=== PATIENT | female | born 1980 | race Two or more races ===

== ENCOUNTER → 2017-05-26 07:25 | Outpatient (CLI) | payer BC, SELFPAY ==
[2017-05-26 08:10] LABS: Basophils % 0.3 % (0.1-2.0); Eosinophils # 0.1 K/mm3 (0.0-0.4); Eosinophils % 1.2 % (0.1-12.0); Hematocrit 42.6 % (37.0-47.0); Hemoglobin 13.6 g/dL (12.2-16.2); Lymphocytes # 3.2 K/mm3 (0.7-4.5); Lymphocytes % 33.7 K/mm3 (10-50); Mean Corpuscular Hemoglobin 28.2 pg (27.0-31.2); Mean Platelet Volume 8.9 fl (7.4-10.4); Monocytes # 0.4 K/mm3 (0.1-1.0); Monocytes % 4.6 % (1.7-9.3); Neutrophils # 5.7 K/mm3 (1.8-7.8); Neutrophils % 60.1 % (37.0-80.0); Platelet Count 217 K/mm3 (142-424); Red Blood Count 4.85 M/mm3 (4.20-5.40); Red Cell Distribution Width 13.1 % (11.5-17.5); White Blood Count 9.4 K/mm3 (4.8-10.8)
[2017-05-26 08:17] LABS: Alanine Aminotransferase 22 U/L (12-78); Albumin Level 3.5 gm/dL (3.4-5.0); Albumin/Globulin Ratio 0.9 (1.1-1.8); Alkaline Phosphatase 56 U/L (46-116); Anion Gap 9.3 mEq/L (5-15); Aspartate Amino Transferase 17 U/L (15-37); Bilirubin,Total 0.7 mg/dL (0.2-1.0); Blood Urea Nitrogen 12 mg/dL (7-18); Calcium 9.2 mg/dL (8.5-10.1); Carbon Dioxide 30 mmol/L (21.0-32.0); Chloride 103 mmol/L (98-107); Chol/HDL Ratio 2.5 (1-3.5); Cholesterol 160 mg/dL (140-200); Creatinine,Serum 0.69 mg/dL (0.55-1.02); Estimated Glomerular Filt Rate 95 ml/min (>60); Free T4 (Free Thyroxine) 1.03 ng/dl (0.76-1.46); GFR (African American) 115 ML/MIN (>60); Glucose 100 mg/dL (74-106); HDL Cholesterol 64 mg/dL (29-89); LDL Cholesterol 81 mg/dL (0-130); Potassium 4.3 mmoL/L (3.5-5.1); Sodium 138 mmol/L (136-145); Thyroid Stimulating Hormone 0.67 uIU/ml (0.358-3.740); Total Protein,Serum 7.5 gm/dL (6.4-8.2); Triglycerides 76 mg/dL (30-200); VLDL Cholesterol 15 mg/dL (0-40)
== END ==
PROVIDERS: PCP Nurse Practitioner Family; Visit Provider Nurse Practitioner Family
DX: I49.3 Ventricular premature depolarization (principal); E01.0 Iodine-deficiency related diffuse (endemic) goiter
CPT/HCPCS: 36415; 80053; 80061; 84439; 84443; 85025; 93225; 93226

== ENCOUNTER → 2017-05-31 13:43 | Outpatient (CLI) | payer BC, SELFPAY ==
--- NOTE | 2017-05-31 13:55 | CA_ITS ---
PROCEDURE: 2-D M-mode and color Doppler study INDICATIONS FOR THE TEST: Chest pain COPD Heart Murmur Tobacco Smoking Palpitations+ Fatigue Syncope Edema Hypertension Diabetes Mellitus Rheumatic Fever SOB+RAMIREZ Obesity Hyperlipidemia Family History HD Additional History PVC'S PATIENT INFORMATION HEIGHT: 60 WEIGHT:168 GENDER: Female B/P: 2-D/M-MODE INTERPRETATION: 2-D MEASUREMENTS OBSERVED VALUES IN CMS Right Ventricular Dimension (RVDd) 2.1 Interventricular Septum (Thickness)(IVsd) 0.9 Left Ventricular Internal Dimensions(LVIDd) 4.6 Left Ventricular Posterior Wall (Thickness)(LVPWd) 0.8 Aortic Root 2.6 Aortic Cusp Separation 1.9 Left Atrial Dimensions (LAD) 3.6 2D 1. Left atrium is normal size, left ventricle is normal size, there is no concentric left ventricular hypertrophy, visually estimated ejection fraction 55% with no obvious regional wall motion abnormality. 2. The right atrium and right ventricle are normal size and contractility. 3. The aortic, mitral and tricuspid valve are structurally normal. 4. The pulmonic valve is poorly visualized. 5. No significant pericardial effusion noted. DOPPLER INTERROGATION: Doppler interrogation of the aortic, mitral and tricuspid valvular presence of mild mitral and tricuspid regurgitation, tricuspid and jet velocity insufficient for calculation of the right ventricular systolic pressure, diastolic parameters are within normal range. CONCLUSION: 1. Normal left ventricular size, there is no concentric left ventricular hypertrophy, visually estimated ejection fraction 55% with no obvious regional wall motion abnormality, diastolic parameters are within normal range. 2. Mild mitral and tricuspid regurgitation. 3. No significant pericardial effusion noted.
--- NOTE | 2017-05-31 14:34 | US_ITS ---
US thyroid HISTORY: Lethargy, dizziness, tachycardia ITS.REASON: THYROMEGLY ORDERING PHYSICIAN: Goldie Marquez PATIENT AGE: 37 years COMPARISON: FINDINGS: The right lobe is 4.8 x 1.4 x 2 cm. There is a 1 x 0.5 cm area of ill-defined slightly heterogeneous echogenicity in the mid aspect of the right lobe and may be due to a small developing nodule versus heterogeneous tissue echogenicity. The left lobe is 4.9 x 1.2 x 1.8 cm. A 4 mm mixed echogenic nodule in the mid aspect of the left lobe. The isthmus is thickened at 5 mm. IMPRESSION: 1. Thyromegaly. 2. Possible right thyroid nodule versus heterogeneous echogenicity. Consider 6 month follow-up to confirm stability. 3. 5 mm left thyroid nodule
== END ==
PROVIDERS: PCP Internal Medicine Adolescent Medicine; Visit Provider Nurse Practitioner Family
DX: I49.3 Ventricular premature depolarization (principal); E01.0 Iodine-deficiency related diffuse (endemic) goiter
CPT/HCPCS: 76536; 93306

== ENCOUNTER → 2021-05-17 08:35 | Outpatient (CLI) | payer BC, SELFPAY ==
[2021-05-17 09:40] LABS: Basophils # 0.1 K/mm3 (0-0.2); Basophils % 0.8 % (0.1-2.0); Eosinophils % 0.7 % (0.1-12.0); Hematocrit 40.2 % (37.0-47.0); Hemoglobin 13.3 g/dL (12.2-16.2); Lymphocytes # 2.4 K/mm3 (0.7-4.5); Lymphocytes % 39.6 % (10-50); Mean Corpuscular Hemoglobin 29.6 pg (27.0-31.2); Mean Corpuscular Volume 89.6 fl (81-99); Mean Platelet Volume 8.5 fl (7.4-10.4); Monocytes # 0.2 K/mm3 (0.1-1.0); Monocytes % 3.9 % (1.7-9.3); Neutrophils # 3.3 K/mm3 (1.8-7.8); Platelet Count 201 K/mm3 (142-424); Red Blood Count 4.48 M/mm3 (4.20-5.40); Red Cell Distribution Width 13.8 % (11.5-17.5)
[2021-05-17 09:58] LABS: Hemoglobin A1C 5.2 % (4.0-6.0)
[2021-05-17 13:18] LABS: Chloride 106 mmol/L (98-107); Potassium 4.3 mmoL/L (3.5-5.1); Sodium 138 mmol/L (136-145)
[2021-05-17 13:21] LABS: Alanine Aminotransferase 16 U/L (12-78); Albumin Level 4.1 g/dl (3.5-5.0); Albumin/Globulin Ratio 1.6 (1.1-1.8); Alkaline Phosphatase 36 U/L (38-126); Anion Gap 10.3 mEq/L (5-15); Aspartate Amino Transferase 24 U/L (14-36); Bilirubin,Total 0.9 mg/dl (0.2-1.3); Blood Urea Nitrogen 16 mg/dl (7-17); Calcium 8.7 mg/dl (8.4-10.2); Carbon Dioxide 26 mmol/L (22.0-30.0); Estimated Glomerular Filt Rate 78 ml/min (>60); GFR (African American) 95 ML/MIN (>60); Globulin 2.6 g/dL (1.3-3.2); Glucose 81 mg/dl (74-100); Total Protein,Serum 6.7 g/dl (6.3-8.2)
[2021-05-17 13:48] LABS: Triiodothryronine (T3) Uptake 35 % (23.5-40.5)
[2021-05-17 13:49] LABS: Free Thyroxine Index 3.2 ug/dL (5.93-13.13); T4 (Thyroxine) 9.1 ug/dl (5.53-11.0)
[2021-05-17 14:02] LABS: Thyroid Stimulating Hormone 0.82 uIU/mL (0.465-4.68)
== END ==
PROVIDERS: PCP Internal Medicine Adolescent Medicine; Visit Provider Internal Medicine Adolescent Medicine
DX: R51.9 Headache, unspecified (principal); E01.0 Iodine-deficiency related diffuse (endemic) goiter
CPT/HCPCS: 36415; 80053; 83036; 84436; 84443; 84479; 85025

== ENCOUNTER → 2021-08-21 11:16 | Outpatient (CLI) | payer BC, SELFPAY ==
--- NOTE | 2021-08-21 11:21 | XR_ITS ---
PROCEDURE INFORMATION: Exam: XR Entire Spine, 6 or More Views, Scoliosis Exam date and time: 08/21/2021 11:27 AM Age: 41 years old Clinical indication: Low back pain; Additional info: Pain complete spine-- TECHNIQUE: Imaging protocol: XR of the entire spine. 6 or more views. Evaluation for scoliosis. COMPARISON: No relevant prior studies available. FINDINGS: Vertebrae: An 8 degree dextroscoliotic curvature is identified with apex at L3. Vertebral bodies are normal in vertical dimension and alignment is maintained. Straightening of cervical lordosis which can be additional evidence of scoliosis positional or due to muscle spasm. Lungs: Included lungs appear clear. Gastrointestinal tract: Excessive stool within the colon. Soft tissues: No precervical soft tissue swelling. IMPRESSION: 1. An 8 degree dextroscoliotic curvature is identified with apex at L3. 2. Straightening of cervical lordosis which can be additional evidence of scoliosis, positional or due to muscle spasm. 3. Excessive stool within the colon.
== END ==
PROVIDERS: PCP Internal Medicine Adolescent Medicine; Visit Provider Internal Medicine Adolescent Medicine
DX: M54.2 Cervicalgia (principal); M54.6 Pain in thoracic spine; M54.50 Low back pain, unspecified
CPT/HCPCS: 72084

== ENCOUNTER → 2022-10-04 09:11 | Outpatient (CLI) | payer BC, SELFPAY ==
[2022-10-04 09:38] LABS: Basophils % 0.4 % (0.1-2.0); Eosinophils # 0.1 K/mm3 (0.0-0.4); Eosinophils % 1.6 % (0.1-12.0); Hematocrit 41.4 % (37.0-47.0); Hemoglobin 13.5 g/dL (12.2-16.2); Lymphocytes # 3.3 K/mm3 (0.7-4.5); Mean Corpuscular HGB Conc 32.6 g/dL (31.8-35.4); Mean Corpuscular Hemoglobin 28.3 pg (27.0-31.2); Mean Corpuscular Volume 86.7 fl (81-99); Mean Platelet Volume 8.6 fl (7.4-10.4); Monocytes # 0.4 K/mm3 (0.1-1.0); Monocytes % 4.8 % (1.7-9.3); Neutrophils # 4.4 K/mm3 (1.8-7.8); Neutrophils % 53.1 % (37.0-80.0); Platelet Count 203 K/mm3 (142-424); Red Blood Count 4.78 M/mm3 (4.20-5.40); Red Cell Distribution Width 13.6 % (11.5-17.5); White Blood Count 8.3 K/mm3 (4.8-10.8)
[2022-10-04 11:19] LABS: Chloride 105 mmol/L (98-107); Potassium 3.9 mmoL/L (3.5-5.1); Sodium 137 mmol/L (136-145)
[2022-10-04 11:22] LABS: Alanine Aminotransferase 19 U/L (12-78); Albumin Level 3.7 g/dl (3.5-5.0); Albumin/Globulin Ratio 1.3 (1.1-1.8); Alkaline Phosphatase 54 U/L (38-126); Anion Gap 9.9 mEq/L (5-15); Aspartate Amino Transferase 24 U/L (14-36); Bilirubin,Total 0.8 mg/dl (0.2-1.3); Blood Urea Nitrogen 11 mg/dl (7-17); Calcium 9.4 mg/dl (8.4-10.2); Carbon Dioxide 26 mmol/L (22.0-30.0); Cholesterol 184 mg/dl (140-200); Estimated Glomerular Filt Rate 91 ml/min (>60); GFR (African American) 110 ML/MIN (>60); Globulin 2.9 g/dL (1.3-3.2); Glucose 95 mg/dl (74-100); Glucose,Fasting 95 mg/dl (74-100); Total Protein,Serum 6.6 g/dl (6.3-8.2); Triglycerides 87 mg/dl (30-150); VLDL Cholesterol 17 mg/dL (0-40)
[2022-10-04 11:23] LABS: Chol/HDL Ratio 2.8 (1-3.5); HDL Cholesterol 65 mg/dl (40-60)
[2022-10-04 11:34] LABS: Direct LDL Cholesterol 85.86 mg/dL (100-129)
[2022-10-04 11:53] LABS: Thyroid Stimulating Hormone 0.87 uIU/mL (0.465-4.68)
[2022-10-04 12:01] LABS: Hemoglobin A1C 5.3 % (4.0-6.0)
[2022-10-05 08:37] LABS: Estradiol 26.9 pg/mL (.); FSH 8.3 mIU/mL (.); LH 7.7 mIU/mL (.)
[2022-10-05 11:48] LABS: Insulin Level Total 7.6 uIU/mL (2.6-24.9)
[2022-10-08 12:18] LABS: Testosterone, Total, LC/MS 12 ng/dL (.)
[2022-10-13 10:58] LABS: Anti Mullerian Hormone (AMH) 0.602
== END ==
LOC: LAB 09:12
PROVIDERS: PCP Nurse Practitioner Family; Visit Provider Obstetrics & Gynecology
DX: Z00.00 Encounter for general adult medical examination without abnormal findings (principal)
CPT/HCPCS: 36415; 80053; 80061; 82397; 82670; 82947; 83001; 83002; 83036; 83525; 84403; 84443; 85025

== ENCOUNTER → 2022-10-14 16:42 | Outpatient (CLI) | payer BC, SELFPAY ==
--- NOTE | 2022-10-27 13:33 | PC.NURSE ---
Spoke with patient about a HST and she said she wanted to think more about it and would give me a call back. She took my name and number so she could all back.
== END ==
LOC: LAB 16:42
PROVIDERS: PCP Nurse Practitioner Family; Visit Provider Physician Assistant
DX: Z86.39 Personal history of other endocrine, nutritional and metabolic disease (principal)
CPT/HCPCS: 36415; 82306

== ENCOUNTER → 2023-01-10 07:43 | Outpatient (CLI) | payer BC, SELFPAY ==
--- NOTE | 2023-01-10 07:47 | US_ITS ---
FINAL REPORT CLINICAL HISTORY: RUQ ABD PAIN COMPARISON: None FINDINGS: Sonographic images of the right upper quadrant were obtained. The pancreas is partially obscured.The liver has an unremarkable appearance.The gallbladder appears normal without evidence of gallstones.There is no evidence of biliary ductal dilatation.The common duct measures 2 mm. Limited images of the right kidney are unremarkable. IMPRESSION: Unremarkable right upper quadrant ultrasound. Reviewed, Interpreted and Dictated by Armando Moreland III, MD Transcribed by Isi Ceballos Authenticated and . [facility]
== END ==
LOC: RAD 07:44
PROVIDERS: PCP Nurse Practitioner Family; Visit Provider Nurse Practitioner Family
DX: R10.811 Right upper quadrant abdominal tenderness (principal)
CPT/HCPCS: 76705

== ENCOUNTER → 2023-02-06 11:02 | Outpatient (CLI) | payer BC, SELFPAY | PROVIDERS: PCP Internal Medicine Adolescent Medicine; Visit Provider Internal Medicine Adolescent Medicine | DX: G47.30 Sleep apnea, unspecified (principal); G47.10 Hypersomnia, unspecified; R51.9 Headache, unspecified | CPT/HCPCS: G0399 ==